=== PATIENT | female | born 1945 | race Hispanic/Latino ===

== ENCOUNTER 2016-09-25 10:50 | Outpatient (CLI) | payer MEDICARE ==
--- NOTE | 2016-09-26 08:30 | Nuclear Medicine Report ---
NUCLEAR MEDICINE MUGA GATED CARDIAC HISTORY: Chronic atrial fibrillation. FINDINGS: Planar images of the heart demonstrate no obvious cardiac wall motion abnormality. Heart rate measures 77 beats per minute. The cardiac ejection fraction measures 58%. IMPRESSION: Cardiac ejection fraction measures 58%.
== END 2016-09-25 10:51 | disposition home or self-care (01) ==
LOC: NM 10:50
PROVIDERS: ATTEND Internal Medicine Cardiovascular Disease
DX: I48.2 Chronic atrial fibrillation (principal)
CPT/HCPCS: 78472; A9560